=== PATIENT | female | born 1995 | race Caucasian/White ===

== ENCOUNTER 2025-06-22 08:25 | Outpatient (CLI) | payer BC, SELFPAY | END 2025-06-22 08:26 | disposition home or self-care (01) | LOC: NFLDREF 06-26 09:34 | PROVIDERS: Visit Provider Obstetrics & Gynecology | DX: Z34.93 Encounter for supervision of normal pregnancy, unspecified, third trimester (principal) | CPT/HCPCS: 86592; 87491; 87591 ==

== ENCOUNTER 2025-06-22 08:27 | Outpatient (CLI) | payer BC, SELFPAY ==
--- NOTE | 2025-06-22 08:15 | CRLHL7_ITS ---
For Patients: As a result of the Century Cures Act, medical imaging exams and procedure reports are released immediately into your electronic medical record. You may view this report before your referring provider. If you have questions, please contact your health care provider. INDICATION: Chronic hypertension TECHNIQUE: Limited transabdominal two-dimensional meredith-scale ultrasound examination. COMPARISON: None FINDINGS: There is a living fetus in cephalic lie with gestational age of 28 weeks 4 days by LMP and 29 weeks 1 day by today`s measurements. EDC based on LMP is 09/10/2025. BPD: 7.2 cm, 29 weeks Head circumference: 27.4 cm, 29 weeks 6 days Abdominal circumference: 25.2 cm, 29 weeks 3 days Femur length: 5.3 cm, 28 weeks 2 days HC/AC: 1.08 The weight is estimated at 1333 grams, the 57th percentile. The heart rate is measured at 145 beats per minute and the rhythm appears regular. The amniotic fluid volume is within normal limits with single deepest pocket of 4.3 cm. The placenta is posterior and superior to the cervical os. There is no evidence of previa. IMPRESSION: 1. Living fetus in cephalic lie with gestational age of 28 weeks 4 days by LMP and 29 weeks 1 day by today`s measurements. EDC based on LMP is 09/10/2025. 2. weight estimated at 1333 grams, the 57th percentile. Dictated by Ronnell Pandey MD @ 06/22/2025 12:19:13 PM (Electronically Signed)
== END 2025-06-22 08:28 | disposition home or self-care (01) ==
LOC: US 08:27
PROVIDERS: Visit Provider Physician Assistant
DX: O10.913 Unspecified pre-existing hypertension complicating pregnancy, third trimester (principal); Z3A.29 29 weeks gestation of pregnancy
CPT/HCPCS: 76815; 87491; 87591

== ENCOUNTER 2025-07-14 10:33 | Outpatient (CLI) | payer BC, SELFPAY ==
--- NOTE | 2025-07-14 10:45 | CRLHL7_ITS ---
For Patients: As a result of the Cures Act, medical imaging exams and procedure reports are released immediately into your electronic medical record. You may view this report before your referring provider. If you have questions, please contact your health care provider. OB ULTRASOUND LMP: 12/04/2024. CHAPARRO by LMP: 09/10/2025. GA: 31 w, 5 d. Single. Comparison: Ultrasound 06/22/2025. INDICATION: Pre-existing hypertension. TECHNIQUE: Real time grayscale imaging of the fetus was performed. Transabdominal. CERVIX: Not visualized. POSITIONING: Vertex. AMNIOTIC FLUID: 6.7 cm. SDP (N: greater than 2 x 1 cm) PLACENTA: Technique: Transabdominal. PLACENTA POSITION: Posterior. DOPPLER: heart rate: 150 bpm. BIOMETRY: BPD: 8.4 cm. 33 w, 6 d, 92.6%. HC: 30.1 cm. 33 w, 3 d, 59.2%. AC: 28.8 cm. 32 w, 6 d, 79.8%. FL: 6.3 cm. 32 w, 4 d, 61.5%. FL/AC ratio: 21.8%. HC/AC ratio: 1.0. EFW: 2079g. Weight: 4 lbs., 9 oz. age by this US: 33 w, 1 d. CHAPARRO by this US: 08/31/2025. Percentile by CHAPARRO: 77.9%. IMPRESSION: 1. Sonographic gestational age 33 weeks 1 day and sonographic due date 08/31/2025. Sonographic age is 10 days ahead of the clinical age. 2. Estimated weight 78th percentile. Abdominal circumference 80th percentile. Darin Sifuentes M.D. Diagnostic Radiologist [email or web address] ADRIANE/[email or web address]/Dictated by: Darin Sifuentes MD @ 07/14/2025 11:54:00 AM (Electronically Signed)
== END 2025-07-14 10:34 | disposition home or self-care (01) ==
LOC: US 10:34
PROVIDERS: Visit Provider Obstetrics & Gynecology
DX: O10.919 Unspecified pre-existing hypertension complicating pregnancy, unspecified trimester (principal); Z3A.33 33 weeks gestation of pregnancy
CPT/HCPCS: 76816

== ENCOUNTER 2025-07-16 16:18 | Outpatient (CLI) | payer BC, SELFPAY ==
[2025-07-16] VITALS (15 sets, daily range): BP systolic 112–139; BP diastolic 75–99; PULSE 82–114; RESP 18; TEMP 36.9; O2SAT 98
[2025-07-16 18:35] LABS: Hematocrit* 39.0 % (33.0-51.0); Hemoglobin* 12.4 gm/dL (12.0-16.0); Mean Corpuscular HGB Conc 32 gm/dL (32-36); Mean Corpuscular Hemoglobin 30 pg (26-34); Mean Corpuscular Volume 95 fL (80-100); Red Blood Count* 4.09 m/uL (4.00-5.20); White Blood Count* 15.73 K/uL (4.50-11.00)
[2025-07-16 18:49] LABS: Alanine Aminotransferase* 23 U/L (4-35); Aspartate Amino Transferase* 34 U/L (12-35); Blood Urea Nitrogen* 9 mg/dL (5-24); Creatinine* 0.6 mg/dL (0.5-1.5); Estimated Glomerular Filt Rate 125 ml/min; Slide Review Reflex No
[2025-07-16 18:50] LABS: Protein Creatinine Ratio Urine 0.62 (0-0.19)
--- NOTE | 2025-07-16 21:01 | PC.OBNST ---
NST Note NST Note Start: 07/16/25 16:24 Freq: ONCE Status: Active Protocol: Document 07/16/25 20:51 [facility] [place]Rec: 07/16/25 20:53 [facility] [id number][place] NST Note 2 Para (# of births) 1 EDC 09/10/25 Gestational Age In 32 Weeks & 0 Days Weeks & Days High Risk Factors High Blood Pressure - Gestational Patient Presented Other with Complaint(s) of Other Complaints Pre E rule out Appropriate for Yes Gestational Age NAA Sampson, RN Date 07/16/25 Appropriate for Yes Gestational Age NAA Mcmahan RN Date 07/16/25 OB NST charge Yes Complete NST Note Yes via Write Note The provider's electronic signature indicates the NST is reactive/appropriate for gestational age. *Note to provider: If an addendum is required, open the patient's chart and click on the note under the Nurse/Allied Health tab.
== END 2025-07-16 20:45 | disposition home or self-care (01) ==
LOC: OB OUT 16:19 → OB 16:22
PROVIDERS: Visit Provider Obstetrics & Gynecology
DX: O10.913 Unspecified pre-existing hypertension complicating pregnancy, third trimester (principal); Z3A.32 32 weeks gestation of pregnancy
CPT/HCPCS: 36415; 59025; 82565; 82570; 84156; 84450; 84460; 84520; 85027; G0463

== ENCOUNTER 2025-07-17 10:50 | Outpatient (CLI) | payer BC, SELFPAY ==
[2025-07-18 09:41] LABS: Protein Creatinine Ratio Urine 0.37 (0-0.19)
[2025-07-18 09:45] LABS: Total Volume 24 Hour Urine 2850 ml; Urine Creatinine mg/24 Hour 1243 mg/Day
== END 2025-07-17 10:51 | disposition home or self-care (01) ==
PROVIDERS: Visit Provider Obstetrics & Gynecology
DX: O10.913 Unspecified pre-existing hypertension complicating pregnancy, third trimester (principal)
CPT/HCPCS: 82570; 84156

== ENCOUNTER 2025-07-24 09:10 | Outpatient (CLI) | payer BC, SELFPAY | END 2025-07-24 09:11 | disposition home or self-care (01) | LOC: NFLDREF 07-27 11:48 | PROVIDERS: Visit Provider Obstetrics & Gynecology | DX: O10.913 Unspecified pre-existing hypertension complicating pregnancy, third trimester (principal) | CPT/HCPCS: 82565; 82570; 84156; 84450; 84460; 84520; 84550 ==

== ENCOUNTER 2025-07-24 09:14 | Outpatient (CLI) | payer BC, SELFPAY ==
--- NOTE | 2025-07-24 09:15 | CRLHL7_ITS ---
For Patients: As a result of the Century Cures Act, medical imaging exams and procedure reports are released immediately into your electronic medical record. You may view this report before your referring provider. If you have questions, please contact your health care provider. OB ULTRASOUND BIOPHYSICAL PROFILE LMP: 12/04/2024. CHAPARRO by LMP: 09/10/2025*. GA: 33 w, 1 d. Single. Comparison: 07/14/2025 and 06/22/2025. INDICATION: Hypertension. TECHNIQUE: Real time meredith scale imaging of the fetus was performed. Transabdominal imaging performed. CERVIX: Not Visualized. POSITIONING: Vertex. AMNIOTIC FLUID: 3.4 cm SDP (N: greater than 2 x 1 cm) BIOPHYSICAL PROFILE: Gross body movements: 2. tone: 2. Respiratory activity: 2. Amniotic fluid: 2. Total score: 8. PLACENTA: Technique: Transabdominal. PLACENTA POSITION: Posterior Right Wall. DOPPLER: heart rate: 147 bpm. TECHNOLOGIST COMMENTS: The placenta appears hyperechoic. Breathing rhythm appeared fast, unknown significance. IMPRESSION: Normal biophysical profile 03/06. DARIN HEREDIA M.D. Diagnostic Radiologist [email or web address] DW/Dictated by: Darin Heredia MD @ 07/26/2025 1:17:00 PM (Electronically Signed)
== END 2025-07-24 09:15 | disposition home or self-care (01) ==
LOC: US 09:14
PROVIDERS: Visit Provider Obstetrics & Gynecology
DX: O10.913 Unspecified pre-existing hypertension complicating pregnancy, third trimester (principal); Z3A.33 33 weeks gestation of pregnancy
CPT/HCPCS: 76819

== ENCOUNTER 2025-07-29 13:38 | Outpatient (CLI) | payer BC, SELFPAY ==
[2025-07-29 13:50] VITALS: BP 116/73; PULSE 97
[2025-07-29 14:05] VITALS: BMI 35.4
[2025-07-29 14:08] VITALS: BP 114/80; PULSE 90
[2025-07-29 14:24] VITALS: BP 113/77; PULSE 90
[2025-07-29 14:32] LABS: Hematocrit* 39.5 % (33.0-51.0); Hemoglobin* 13.0 gm/dL (12.0-16.0); Mean Corpuscular HGB Conc 33 gm/dL (32-36); Mean Corpuscular Hemoglobin 30 pg (26-34); Mean Corpuscular Volume 91 fL (80-100); Red Blood Count* 4.33 m/uL (4.00-5.20); White Blood Count* 14.45 K/uL (4.50-11.00)
[2025-07-29 14:35] LABS: Slide Review Reflex No
[2025-07-29 14:37] VITALS: BP 106/78; PULSE 81
[2025-07-29 14:51] LABS: Alanine Aminotransferase* 24 U/L (4-35); Aspartate Amino Transferase* 37 U/L (12-35); Blood Urea Nitrogen* 6 mg/dL (5-24); Creatinine* 0.6 mg/dL (0.5-1.5); Est. Creatinine Clearance* 114.44; Estimated Glomerular Filt Rate 125 ml/min
[2025-07-29 14:52] VITALS: BP 108/82; PULSE 82
--- NOTE | 2025-07-29 15:24 | PC.OBNST ---
NST Note NST Note Start: 07/29/25 13:50 Freq: ONCE Status: Discharge Protocol: Document 07/29/25 13:50 [facility] (Rec: 07/29/25 15:10 [facility] No Response) NST Note 2 Para (# of births) 1 EDC 09/10/25 Gestational Age In 33 Weeks & 6 Days Weeks & Days High Risk Factors High Blood Pressure - Gestational Patient Presented Headache with Complaint(s) of Reactive Yes Appropriate for Yes Gestational Age RN Charles RN Date 07/29/25 Reactive Yes Appropriate for Yes Gestational Age RN Evi RN Date 07/29/25 OB NST charge Yes Complete NST Note Yes via Write Note The provider's electronic signature indicates the NST is reactive/appropriate for gestational age. *Note to provider: If an addendum is required, open the patient's chart and click on the note under the Nurse/Allied Health tab.
== END 2025-07-29 15:10 | disposition home or self-care (01) ==
LOC: OB OUT 13:39 → OB 13:40
PROVIDERS: Visit Provider Obstetrics & Gynecology
DX: O10.913 Unspecified pre-existing hypertension complicating pregnancy, third trimester (principal); R51.9 Headache, unspecified; Z3A.33 33 weeks gestation of pregnancy
CPT/HCPCS: 36415; 59025; 82565; 84450; 84460; 84520; 85027; G0463